=== PATIENT | female | born 1985 | race Caucasian/White ===

== ENCOUNTER 2020-09-16 04:15 | Inpatient (IN) | payer OTHER, MEDICAID, SELFPAY ==
[~2020-09-16] VITALS: Ht 152.4 cm; Wt 69.9 kg
[2020-09-16] MEDS ORDERED: LACTATED RINGERS 1,000 ML IV SCH (04:50)
[2020-09-16 05:27] LABS: APPEARANCE,URINE CLEAR (CLEAR); BILIRUBIN,URINE NEGATIVE (NEGATIVE); BLOOD, URINE NEGATIVE (NEGATIVE); COLOR,URINE YELLOW (YELLOW); LEUKOCYTE ESTERASE ,URINE 1+ (NEGATIVE); NITRITE, URINE NEGATIVE (NEGATIVE); UGLUCOSE NEGATIVE (NEGATIVE)
[2020-09-16 05:33] LABS: MEAN CORPUSCULAR HEMOGLOBIN 26 pg (27-31); WHITE BLOOD COUNT (AUTO) 7.7 K/uL (4.8-10.8)
[2020-09-16 05:34] LABS: RBC,URINE 0-5 /HPF (0-5); WBC,URINE 16-25 (MOD) /HPF (0-5)
[2020-09-16 05:38] LABS: BASOPHILS % (AUTO) 0.6 % (0.0-2.0); EOSINOPHILS # (AUTO) 0.1 K/uL (0-0.4); EOSINOPHILS % (AUTO) 1.3 % (0.0-4.0); HEMATOCRIT 33.4 % (36-48); LYMPHOCYTES % (AUTO) 25.9 % (20.5-51.1); MEAN CORPUSCULAR HGB CONC 33 g/dL (33-37); MEAN CORPUSCULAR VOLUME 77.4 fL (80-94); MONOCYTES # (AUTO) 0.6 K/uL (0.8-1.0); MONOCYTES % (AUTO) 7.9 % (1.7-9.3); NEUTROPHILS # (AUTO) 4.9 K/uL (1.8-7.7); NEUTROPHILS % (AUTO) 64.3 % (42.2-75.2); PLATELET COUNT (AUTO) 277 K/uL (140-450); RED BLOOD CELL COUNT(AUTO) 4.31 MIL/uL (4.20-5.40)
[2020-09-16 05:59] LABS: ALBUMIN 2.9 g/dL (3.4-5.0); ANION GAP 13.2 (8-16); CARBON DIOXIDE 24.1 mmol/L (21-32); CREATININE 0.5 mg/dL (0.6-1.3); POTASSIUM 3.3 mmol/L (3.5-5.1); TOTAL BILIRUBIN 0.3 mg/dL (0.0-1.0)
[2020-09-16 06:04] VITALS: BP 105/65
[2020-09-16] MEDS ORDERED: ceFAZolin 1,000 MG VIAL ONE (06:12)
[2020-09-16] MEDS ORDERED: MORPHINE PRES FREE 10 MG/10 ML AMP IV ONE (07:18)
[2020-09-16] MEDS ORDERED: CITRIC ACID/SODIUM CITRATE 30 ML UDC ONE (07:19)
[2020-09-16] MEDS ORDERED: CITRIC ACID/SODIUM CITRATE 30 ML UDC PO SCH (07:25)
[2020-09-16] MEDS ORDERED: diphenhydrAMINE 50 MG/ML VIAL IVP PRN (07:45)
[2020-09-16] MEDS ORDERED: NALOXONE 0.4 MG/ML VIAL IVP PRN ×3 (07:45)
[2020-09-16] MEDS ORDERED: METOCLOPRAMIDE 10 MG/2 ML INJ VIAL ONE (07:49)
[2020-09-16] MEDS ORDERED: DEXAMETHASONE 4 MG/ML VIAL ONE (07:49)
[2020-09-16] MEDS ORDERED: KETOROLAC 30 MG/ML VIAL IVP PRN (08:05)
[2020-09-16] MEDS ORDERED: METHYLERGONOVINE 0.2 MG/ML AMP IM PRN (08:05)
[2020-09-16] MEDS ORDERED: IBUPROFEN 800 MG TAB PO PRN (08:05)
[2020-09-16] MEDS ORDERED: SIMETHICONE 80 MG TAB.CHEW PO PRN (08:05)
[2020-09-16] MEDS ORDERED: oxyCODONE/APAP 5/325 MG 1 TAB TAB PO PRN (08:05)
[2020-09-16] MEDS ORDERED: TEMAZEPAM 15 MG CAP PO PRN (08:05)
[2020-09-16] MEDS ORDERED: METHYLERGONOVINE 0.2 MG/ML AMP ONE (08:14)
[2020-09-16] MEDS ORDERED: OXYTOCIN 20 UNITS/LR PREMIX 1,000 ML IV ONE (09:00)
--- NOTE | 2020-09-16 09:03 | NUR ---
PATIENT HAS BEEN SCREENED AND CATEGORIZED LOW NUTRITION RISK. PATIENT WILL BE SEEN WITHIN 7 DAYS OF ADMISSION. 09/22/[address]
[2020-09-16] MEDS: ONDANSETRON 4 MG/2 ML VIAL IVP PRN ×2 (13:10→19:16)
[2020-09-16] MEDS: KETOROLAC 30 MG/ML VIAL IM/IVP SCH ×2 (13:13→19:18)
[2020-09-16] MEDS: OXYTOCIN 20 UNITS in LACTATED RINGERS 1,000 ML IV SCH (18:25)
[2020-09-16] MEDS: DOCUSATE SOD/SENNA 50/8.6 MG 1 TAB PO SCH (21:00)
[2020-09-17] MEDS: OXYTOCIN 20 UNITS in LACTATED RINGERS 1,000 ML IV SCH (00:07)
[2020-09-17] MEDS: KETOROLAC 30 MG/ML VIAL IM/IVP SCH (00:54)
[2020-09-17] MEDS ORDERED: OXYTOCIN 20 UNITS/LR PREMIX 1,000 ML IV ONE (02:15)
[2020-09-17 07:03] LABS: BASOPHILS % (AUTO) 0.2 % (0.0-2.0); EOSINOPHILS % (AUTO) 0.5 % (0.0-4.0); HEMATOCRIT 26.4 % (36-48); HEMOGLOBIN 8.7 g/dL (12.0-16.0); LYMPHOCYTES # (AUTO) 1.9 K/uL (2.5-16.5); LYMPHOCYTES % (AUTO) 21.6 % (20.5-51.1); MEAN CORPUSCULAR HEMOGLOBIN 26 pg (27-31); MEAN CORPUSCULAR HGB CONC 33 g/dL (33-37); MEAN CORPUSCULAR VOLUME 78.4 fL (80-94); MONOCYTES # (AUTO) 0.6 K/uL (0.8-1.0); MONOCYTES % (AUTO) 6.6 % (1.7-9.3); NEUTROPHILS # (AUTO) 6.2 K/uL (1.8-7.7); NEUTROPHILS % (AUTO) 71.1 % (42.2-75.2); PLATELET COUNT (AUTO) 247 K/uL (140-450); RED BLOOD CELL COUNT(AUTO) 3.37 MIL/uL (4.20-5.40); WHITE BLOOD COUNT (AUTO) 8.8 K/uL (4.8-10.8)
[2020-09-17] MEDS: oxyCODONE/APAP 5/325 MG 1 TAB TAB PO PRN (17:33)
[2020-09-17] MEDS: DOCUSATE SOD/SENNA 50/8.6 MG 1 TAB PO SCH (21:52)
[2020-09-18] MEDS: oxyCODONE/APAP 5/325 MG 1 TAB TAB PO PRN ×3 (02:32→12:32)
== END 2020-09-18 13:30 | disposition home or self-care (01) | DRG 783 ==
LOC: MLD 04:15 → MFCC 09:56
PROVIDERS: ADMIT Obstetrics & Gynecology; ATTEND Obstetrics & Gynecology
PROC: 0UB70ZZ Excision of Bilateral Fallopian Tubes, Open Approach (ICD-10-PCS; 2020-09-16)
PROC: 10D00Z1 Extraction of Products of Conception, Low, Open Approach (ICD-10-PCS; principal; 2020-09-16 07:30)
DX: O34.211 Maternal care for low transverse scar from previous cesarean delivery (principal); O60.23X0 Term delivery with preterm labor, third trimester, not applicable or unspecified; Z20.828 Contact with and (suspected) exposure to other viral communicable diseases; Z37.0 Single live birth; Z3A.38 38 weeks gestation of pregnancy; O24.429 Gestational diabetes mellitus in childbirth, unspecified control
CPT/HCPCS: 36415; 51702; 80053; 81001; 85025; 86592; 86886; 86900; 86901; 87081; 87086; J0690; J1100; J1885; J2210; J2270; J2405; J2590; J2765; J7060; J7120